=== PATIENT | male | born 1975 | race Caucasian/White ===

== ENCOUNTER 2017-06-15 11:28 | Emergency (ER) | payer OTHER ==
[~2017-06-15] VITALS: Ht 182.9 cm; Wt 88.5 kg
[2017-06-15] MEDS ORDERED: TETANUS/DIPHTHERIA TOX ADULT 0.5 ML SYR IM ONE (12:15)
[2017-06-15] MEDS ORDERED: HYDROCODONE/APAP 10MG-325MG TAB PO ONE (12:30)
--- NOTE | 2017-06-15 13:03 | Diagnostic Imaging Report ---
PROCEDURE:WRIST COMPLETE RIGHT TECHNIQUE:AP, lateral and oblique views right wrist INDICATION:Right wrist trauma COMPARISON:None. FINDINGS: The right wrist is intact and in anatomic alignment. Soft tissue swelling and subcutaneous emphysema is present at the dorsal aspect of the distal forearm. No foreign bodies. CONCLUSION: No evidence of acute skeletal injury. Soft tissue swelling and subcutaneous emphysema. Dictated by: Forest Jackson M.D. on 06/15/2017 at 13:02 Electronically approved by: Forest Jackson M.D. on 06/15/2017 at 13:02
--- NOTE | 2017-06-15 13:04 | Diagnostic Imaging Report ---
PROCEDURE:WRIST COMPLETE LEFT TECHNIQUE:AP, lateral and oblique views left wrist INDICATION:Left wrist trauma; dog bite COMPARISON:None. FINDINGS: The left wrist is intact and in anatomic alignment. Regional soft tissues are intact. No foreign bodies. CONCLUSION: No evidence of acute injury. Dictated by: Forest Jackson M.D. on 06/15/2017 at 13:03 Electronically approved by: Forest Jackson M.D. on 06/15/2017 at 13:03
== END 2017-06-15 15:48 | disposition home or self-care (01) ==
LOC: ER 11:28
DX: S61.531A Puncture wound without foreign body of right wrist, initial encounter (principal); S61.532A Puncture wound without foreign body of left wrist, initial encounter; S80.871A Other superficial bite, right lower leg, initial encounter; S60.572A Other superficial bite of hand of left hand, initial encounter; W55.01XA Bitten by cat, initial encounter; Y92.488 Other paved roadways as the place of occurrence of the external cause
CPT/HCPCS: 90714; 99283